=== PATIENT | female | born 1940 | race Caucasian/White ===

== ENCOUNTER 2021-03-04 10:33 | Day surgery (SDC) | payer MEDICARE, MEDICAID ==
[~2021-03-04] VITALS: Ht 154.9 cm; Wt 86.4 kg
[~2021-03-04 10:33] MED LIST: ASPIRIN 81 MG CHEWABLE TABLET PO ONE; DIAZEPAM 5 MG TABLET PO ONE; DiphenhydrAMINE HCL 50 MG CAPSULE PO ONE; SODIUM CHLORIDE 0.9% 1,000 ML IV ONE; SODIUM CHLORIDE 0.9% 1,000 ML ONE
[2021-03-04] MEDS ORDERED: DiphenhydrAMINE HCL 50 MG CAPSULE ONE (12:13)
[2021-03-04] MEDS ORDERED: ASPIRIN 81 MG CHEWABLE TABLET ONE (12:13)
[2021-03-04] MEDS ORDERED: DIAZEPAM 5 MG TABLET ONE (12:13)
[2021-03-04 12:49] LABS: GLUCOMETER DEV NAME(LOC) SDS.; GLUCOSE,POINT OF CARE 86 MG/DL (70-110)
[2021-03-04] MEDS ORDERED: TOFA5TAB PO (13:29)
[2021-03-04] MEDS ORDERED: ASPI-1450 PO (13:29)
[2021-03-04] MEDS ORDERED: CHOL-35 PO (13:29)
[2021-03-04] MEDS ORDERED: LEVO125 PO (13:29)
[2021-03-04] MEDS ORDERED: LOSA-382 PO (13:29)
[2021-03-04] MEDS ORDERED: METO50 PO (13:29)
[2021-03-04] MEDS ORDERED: TRAM50TA4 PO (13:29)
[2021-03-04] MEDS ORDERED: SIMV-261 PO (13:29)
[2021-03-04] MEDS ORDERED: INSLAN SQ (13:29)
[2021-03-04] MEDS ORDERED: GABA-1216 PO (13:29)
[2021-03-04] MEDS ORDERED: MULT-1203 PO (13:29)
[2021-03-04] MEDS ORDERED: LEFL10TA19 PO (13:29)
[2021-03-04] MEDS ORDERED: OMEP20 PO (13:29)
[2021-03-04] MEDS ORDERED: HYDR200T38 PO (13:29)
[2021-03-04] MEDS ORDERED: DENO60DI SQ (13:29)
[2021-03-04] MEDS ORDERED: FURO20 PO (13:29)
[2021-03-04] MEDS ORDERED: DOCU-350 PO (13:29)
[2021-03-04] MEDS ORDERED: SITA1TBM4 PO (13:29)
[2021-03-04] MEDS ORDERED: MECL25TA39 PO (13:31)
[2021-03-04] MEDS ORDERED: CLOP75TA60 PO (13:31)
[2021-03-04] MEDS ORDERED: HEPARIN SODIUM 1000 UNITS/NS 1,000 ML ONE (13:53)
[2021-03-04] MEDS ORDERED: IOHEXOL 300 MG/ML 50 ML VIAL ONE (13:53)
[2021-03-04] MEDS ORDERED: IOHEXOL 300 MG/ML 100 ML VIAL ONE (13:53)
[2021-03-04] MEDS ORDERED: LIDOCAINE/PF 1% 30 ML VIAL ONE (13:53)
[2021-03-04] MEDS ORDERED: IOHEXOL 300 MG/ML 150 ML VIAL ONE (13:53)
[2021-03-04] MEDS ORDERED: SODIUM BICARBONATE 50 MEQ/50 ML VIAL ONE (13:53)
[2021-03-04] MEDS ORDERED: METO-391 PO (14:00)
[2021-03-04] MEDS ORDERED: SITA1TBM PO (14:00)
[2021-03-04] MEDS ORDERED: TOFA11TA PO (14:00)
[2021-03-04] MEDS ORDERED: AZEL6DRO5 OU (14:00)
[2021-03-04 14:17] VITALS: BP 190/79
[2021-03-04] MEDS ORDERED: FentaNYL CITRATE PF 100 MCG/2 ML VIAL ONE (14:28)
[2021-03-04] MEDS ORDERED: MIDAZOLAM HCL 2 MG/2 ML VIAL ONE (14:28)
[2021-03-04] MEDS ORDERED: MIDAZOLAM HCL 2 MG/2 ML VIAL IVP ONE (14:45)
[2021-03-04] MEDS ORDERED: FentaNYL CITRATE PF 100 MCG/2 ML VIAL IVP ONE (14:45)
[2021-03-04] MEDS ORDERED: HEPARIN SODIUM 1000 UNITS/NS 1,000 ML IARTER ONE (14:45)
[2021-03-04] MEDS ORDERED: IOHEXOL 300 MG/ML 150 ML VIAL IARTER ONE (14:45)
[2021-03-04] MEDS ORDERED: LIDOCAINE 1% 30 ML/SOD BICARB 8.4% 4 ML SQ ONE (14:45)
[2021-03-04 15:10] VITALS: BP 189/83
== END 2021-03-04 19:05 | disposition home or self-care (01) ==
LOC: CATHLAB 10:33
PROVIDERS: ATTEND Internal Medicine Interventional Cardiology
DX: R94.39 Abnormal result of other cardiovascular function study (principal); R06.02 Shortness of breath; I35.0 Nonrheumatic aortic (valve) stenosis; I10 Essential (primary) hypertension; E78.5 Hyperlipidemia, unspecified; E11.9 Type 2 diabetes mellitus without complications; E03.9 Hypothyroidism, unspecified; Z79.82 Long term (current) use of aspirin; Z79.4 Long term (current) use of insulin; Z79.890 Hormone replacement therapy; Z79.891 Long term (current) use of opiate analgesic; Z79.899 Other long term (current) drug therapy
CPT/HCPCS: 82962; 93005; 93458; 99152; C1760; J1644; J2250; J3010; J3490 ×2; J7030; Q9967